=== PATIENT | female | born 1940 | race Caucasian/White ===

== ENCOUNTER 2024-11-08 17:32 | Observation (INO) ==
[2024-11-08] MEDS ORDERED: IOPAMIDOL 100 ML BOTTLE IV ONE (17:33)
[2024-11-08 19:24] LABS: Basophils # (Auto) 0.06 K/mcL (0.00-0.30); Basophils % (Auto) 0.9 % (0.0-2.0); Eosinophils # (Auto) 0.13 K/mcL (0.00-0.70); Eosinophils % (Auto) 2.0 % (0.0-7.0); Hematocrit 33.8 % (34.1-44.9); Hemoglobin 11.0 g/dL (11.2-15.7); Lymphocytes # (Auto) 0.83 K/mcL (1.50-4.80); Lymphocytes % (Auto) 12.9 % (15.5-49.0); Mean Corpuscular HGB Conc 32.5 g/dL (31.0-36.0); Monocytes # (Auto) 1.11 K/mcL (0.10-0.90); Monocytes % (Auto) 17.3 % (1.0-12.0); Neutrophils % (Auto) 66.0 % (38.0-78.0); Platelet Count 365 K/mcL (140-440); RBC 3.33 M/mcL (3.59-5.38); WBC 6.4 K/mcL (4.5-11.0)
[2024-11-08 19:42] LABS: ALT/SGPT 18 U/L (<40); AST/SGOT 21 U/L (<32); Albumin 3.6 gm/dL (3.2-5.2); Albumin/Globulin Ratio 1.3 (1.0-2.3); Alkaline Phosphatase 64 U/L (39-117); Anion Gap 15.0 (8.0-16.0); Bilirubin,Total 0.4 mg/dL (0.1-1.0); Blood Urea Nitrogen 27 mg/dL (8-23); Calcium 9.8 mg/dL (8.6-10.4); Carbon Dioxide 21 mmol/L (22-30); Chloride 101 mmol/L (96-108); Globulin 2.8 gm/dL (2.2-3.7); Glucose 123 mg/dL (70-105); Potassium 4.3 mmol/L (3.3-5.1); Sodium 137 mmol/L (133-145); Thyroid Stimulating Hormone 0.56 uIU/mL (0.27-5.01)
[2024-11-08] MEDS: IPRATROPIUM/ALBUTEROL 3 ML AMPUL.NEB NEB ONE (20:19)
[2024-11-08] MEDS ORDERED: ONDANSETRON 4 MG/2 ML VIAL IV PRN (23:28)
[2024-11-08] MEDS ORDERED: ACETAMINOPHEN 325 MG TABLET PO PRN (23:28)
[2024-11-09] MEDS ORDERED: POTASSIUM CHLORIDE 40 MEQ in DEXTROSE 5% IN WATER 500 ML IV PRN (08:15)
[2024-11-09] MEDS ORDERED: METOCLOPRAMIDE 10 MG/2 ML VIAL IV PRN (08:15)
[2024-11-09] MEDS ORDERED: POLYETHYLENE GLYCOL 3350 17 GM PACKET PO PRN (08:15)
[2024-11-09] MEDS ORDERED: IPRATROPIUM/ALBUTEROL 3 ML AMPUL.NEB NEB PRN (08:15)
[2024-11-09] MEDS ORDERED: MAGNESIUM SULFATE 2 GM/50 ML BAG IV PRN (08:15)
[2024-11-09] MEDS ORDERED: ACETAMINOPHEN 325 MG TABLET PO PRN (08:15)
[2024-11-09] MEDS ORDERED: ONDANSETRON 4 MG/2 ML VIAL IV PRN (08:15)
[2024-11-09] MEDS ORDERED: POTASSIUM CHLORIDE 20 MEQ TABLET PO PRN ×2 (08:15)
[2024-11-09] MEDS ORDERED: SENNOSIDES 1 TABLET PO PRN (08:15)
[2024-11-09] MEDS: BUDESONIDE 0.5 MG/2 ML AMPUL.NEB NEB SCH (08:52)
[2024-11-09] MEDS: IPRATROPIUM/ALBUTEROL 3 ML AMPUL.NEB NEB PRN (08:53)
[2024-11-09] MEDS: VITAMIN D3 25 MCG TABLET PO SCH (09:05)
[2024-11-09] MEDS: CALCIUM (OYSTER SHELL) 500 MG TABLET PO SCH (09:05)
[2024-11-09] MEDS: LEVOTHYROXINE 88 MCG TABLET PO SCH (09:05)
[2024-11-09] MEDS: AZITHROMYCIN 500 MG in DEXTROSE 5% IN WATER 250 ML IV SCH (09:05)
[2024-11-09] MEDS: METOPROLOL SUCCINATE 25 MG TAB.XL.24H PO SCH (09:05)
[2024-11-09] MEDS: OMEPRAZOLE 20 MG CAPSULE PO SCH (09:06)
[2024-11-09] MEDS: DOCUSATE SODIUM 100 MG CAPSULE PO SCH (09:06)
[2024-11-09] MEDS: LOSARTAN 50 MG TABLET PO SCH (09:06)
[2024-11-09] MEDS: ESCITALOPRAM 10 MG TABLET PO SCH (09:06)
[2024-11-09] MEDS: VENLAFAXINE 150 MG CAP.XL.24H PO SCH (09:06)
[2024-11-09] MEDS: HEPARIN 5,000 UNIT/ML VIAL SQ SCH (09:16)
[2024-11-09] MEDS: IPRATROPIUM/ALBUTEROL 3 ML AMPUL.NEB NEB SCH (12:46)
[2024-11-09] MEDS: 0.9 % SODIUM CHLORIDE 10 ML SYRINGE IV SCH (13:23)
[2024-11-09] MEDS: ATORVASTATIN 40 MG TABLET PO SCH (20:40)
[2024-11-09] MEDS: LATANOPROST OPHTH DROPS 2.5ML BOTTLE OU SCH (23:03)
[2024-11-10 06:08] LABS: Basophils # (Auto) 0.01 K/mcL (0.00-0.30); Basophils % (Auto) 0.1 % (0.0-2.0); Eosinophils # (Auto) 0 K/mcL (0.00-0.70); Eosinophils % (Auto) 0 % (0.0-7.0); Hematocrit 28.1 % (34.1-44.9); Hemoglobin 9.4 g/dL (11.2-15.7); Lymphocytes # (Auto) 0.70 K/mcL (1.50-4.80); Lymphocytes % (Auto) 8.1 % (15.5-49.0); Mean Corpuscular HGB Conc 33.5 g/dL (31.0-36.0); Monocytes # (Auto) 0.77 K/mcL (0.10-0.90); Monocytes % (Auto) 8.9 % (1.0-12.0); Neutrophils % (Auto) 82.3 % (38.0-78.0); Platelet Count 381 K/mcL (140-440); RBC 2.79 M/mcL (3.59-5.38); WBC 8.6 K/mcL (4.5-11.0)
[2024-11-10 06:19] LABS: Anion Gap 12.0 (8.0-16.0); Blood Urea Nitrogen 31 mg/dL (8-23); Calcium 9.7 mg/dL (8.6-10.4); Carbon Dioxide 22 mmol/L (22-30); Chloride 102 mmol/L (96-108); Glucose 164 mg/dL (70-105); Potassium 4.6 mmol/L (3.3-5.1); Sodium 136 mmol/L (133-145)
[2024-11-10 12:18] VITALS: TEMP 97.4; O2SAT 94
== END 2024-11-10 12:56 | disposition home health service (06) ==
LOC: MEDSUR 17:32 → ED 17:32 → MEDSUR 23:50
PROVIDERS: ADMIT Internal Medicine; ATTEND Internal Medicine